=== PATIENT | male | born 1975 | race Caucasian/White ===

== ENCOUNTER → 2017-06-26 | Outpatient (CLI) | payer OTHER ==
[2017-06-26 09:20] LABS: BLOOD UREA NITROGEN 22 mg/dl (7-18); BUN/CREATININE RATIO 16.9 (10-20); CALCIUM 9.4 mg/dl (8.5-10.1); CARBON DIOXIDE 26 mmol/L (21-32); CHLORIDE 105 mmol/L (98-107); CHOLESTEROL 284 mg/dl (0-200); CHOLESTEROL/HDL RATIO 6.6; GLUCOSE 90 mg/dl (70-99); HDL CHOLESTEROL 43 mg/dl; LDL CHOLESTEROL CALCULATED 189 mg/dl; POTASSIUM 3.8 mmol/L (3.5-5.1); SODIUM 138 mmol/L (136-145); TRIGLYCERIDES 262 mg/dl (0-150); VERY LOW DENSITY LIPOPROT CALC 52 mg/dl
[2017-06-26 09:24] LABS: PROSTATE SPECIFIC ANTIGEN 0.327 ng/ml (0.000-4.000)
== END | disposition home or self-care (01) ==
LOC: C.LAB 12:52
PROVIDERS: ATTEND Physician Assistant
DX: Z00.00 Encounter for general adult medical examination without abnormal findings (principal); E78.5 Hyperlipidemia, unspecified; Z80.42 Family history of malignant neoplasm of prostate

== ENCOUNTER → 2018-01-30 | Outpatient (CLI) | payer OTHER ==
--- NOTE | 2018-01-30 09:04 | DIAGNOSTIC IMAGING REPORT ---
MRI THE RIGHT SHOULDER NO CONTRAST CLINICAL HISTORY: RT ROTATOR CUFF TENDONITIS COMPARISON STUDY: 03/04/2017 conventional radiographic study FINDINGS: Imaging was performed in sagittal, coronal, and axial planes. There is a small joint effusion. There are no areas of marrow edema to indicate occult fracture or bone bruise. There are moderate arthritic changes present within the acromioclavicular joint. There is inferior humeral head spurring. The bicipital tendon appears intact. There is supraspinatus tendinopathy. There is no evidence of a full-thickness rotator cuff tear. There is a tear the posterior laterally labrum. There is also a probable tear the anterior superior glenoid labrum. IMPRESSION: 1. Supraspinatus tendinopathy. No evidence of full-thickness rotator cuff tear 2. Degenerative labral tear 3. 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 01/30/2018 9:02 AM Dictated Date/Time: 01/30/2018 8:54 AM
== END | disposition home or self-care (01) ==
LOC: C.MRI 07:34
PROVIDERS: ATTEND Orthopaedic Surgery
DX: M19.011 Primary osteoarthritis, right shoulder (principal); M75.91 Shoulder lesion, unspecified, right shoulder